=== PATIENT | female | born 1995 | race Caucasian/White ===

== ENCOUNTER 2019-03-12 21:06 | Emergency (ER) | payer OTHER ==
[2019-03-12 21:16] VITALS: BP 129/86
[2019-03-12] MEDS ORDERED: Albuterol HFA INHALER* 8 gm MDI INH ONE (21:25)
[2019-03-12] MEDS ORDERED: predniSONE TAB* 20 MG PO ONE (21:25)
--- NOTE | 2019-03-12 21:31 | UC ---
Respiratory Complaint HPI - HPI Summary HPI Summary: Started last night with sore throat. Today with wheezing with coughing. More nasal congestion and sore throat. - History of Current Complaint Chief Complaint: UCRespiratory Stated Complaint: SORE THROAT, RUNNY NOSE Hx Obtained From: Patient Hx Last Menstrual Period: irreg since demo shot ?: No Onset/Duration: Sudden Onset, Lasting Days - 1 Timing: Constant Severity Initially: Mild Severity Currently: Moderate Pain Intensity: 5 Character: Cough: Nonproductive Aggravating Factors: Deep Breaths, Recumbent Position Alleviating Factors: Nothing Associated Signs And Symptoms: Positive: Dyspnea, Wheezing, URI, Nasal Congestion Related History: Seasonal Allergies - Allergies/Home Medications Allergies/Adverse Reactions: Allergies Allergy/AdvReac Type Severity Reaction Status Date / Time amoxicillin Allergy Hives Verified 03/12/19 21:17 Home Medications: Home Medications Acetaminophen [Tylenol Extra Strength] 500 mg PO DAILY 03/12/19 [History Confirmed 03/12/19] guaiFENesin ER TAB [Mucinex*] 600 mg PO BID 03/12/19 [History Confirmed 03/12/19 ] medroxyPROGESTERone ACETATE* [DEPO-Provera*] 150 mg IM MONTHLY 03/12/19 [ History Confirmed 03/12/19] PMH/Surg Hx/FS Hx/Imm Hx Previously Healthy: Yes - Surgical History Surgical History: None - Family History Known Family History: Positive: Hypertension, Other - no FMH blood disorders - Social History Occupation: Employed Full-time Lives: With Family Alcohol Use: Weekly Alcohol Amount: 2-3 times a week Substance Use Type: None Smoking Status (MU): Heavy Every Day Tobacco Smoker Amount Used/How Often: 1/2 ppd Have You Smoked in the Last Year: Yes Review of Systems All Other Systems Reviewed And Are Negative: Yes ENT: Positive: Sore Throat, Nasal Discharge Respiratory: Positive: Shortness Of Breath, Cough Physical Exam Triage Information Reviewed: Yes Appearance: No Pain Distress, Well-Nourished, Ill-Appearing Vital Signs: Initial Vital Signs Temp 98.7 F 03/12/19 21:13 Pulse 95 03/12/19 21:13 Resp 15 03/12/19 21:13 BP 129/86 03/12/19 21:13 Pulse Ox 100 03/12/19 21:13 Vital Signs Reviewed: Yes Eyes: Positive: Conjunctiva Clear ENT: Positive: Pharynx normal, TMs normal Neck exam: Normal Respiratory: Positive: Wheezing - expiratory wheeze with coughing. Cardiovascular Exam: Normal Musculoskeletal Exam: Normal Neurological Exam: Normal Psychological Exam: Normal Skin Exam: Normal Respiratory Course/Dx - Differential Dx/Diagnosis Differential Diagnosis/HQI/PQRI: Asthma, Lower Resp Infection, Sinusitis Provider Diagnosis: Upper respiratory infection with cough and congestion, Acute bronchospasm Discharge ED - Sign-Out/Discharge Documenting (check all that apply): Patient Departure All imaging exams completed and their final reports reviewed: No Studies - Discharge Plan Condition: Stable Disposition: HOME Prescriptions: predniSONE TAB* [Deltasone 20 MG TAB*] 60 mg PO DAILY #18 tab Patient Education Materials: Upper Respiratory Infection (DC), Wheezing (ED) Referrals: No Primary Care Phys,NOPCP [Primary Care Provider] - Additional Instructions: NASAL SPRAYS AND DROPS: Afrin in the PUMP/ MIST bottle (Get generic 12 hours nasal decongestant spray). Tilt your head down and look at the floor while doing the spray. Decongestant nasal sprays and drops often give dramatic relief from congestion. They are often recommended for patients with sinus infection to assist with sinus drainage. Persons with high blood pressure should consult the doctor before using these nasal sprays. Afrin and Joaquin-Synephrine are common [id number] preparations. They should not be used for more than five days, as "rebound" congestion can occur - - the congestion flares as the drug wears off. A way of dealing with this rebound congestion problem is to medicate only one nostril each time, allowing the other nostril to recover from the medicine' s effects. When you no longer need the drug during the day, spray only one nostril each night. This helps you sleep well without severe rebound congestion. Call the doctor if you develop severe headache, palpitations, or chest pain. Use cold-eeze zinc lozenges. Get the name brand only. - Billing Disposition and Condition Condition: STABLE Disposition: Home
== END 2019-03-12 21:42 | disposition home or self-care (01) ==
LOC: UCCORT 21:06
DX: J06.9 Acute upper respiratory infection, unspecified (principal); J98.01 Acute bronchospasm; R09.81 Nasal congestion; R05 Cough; F17.210 Nicotine dependence, cigarettes, uncomplicated; Z88.0 Allergy status to penicillin
CPT/HCPCS: 99212; A9270-GY; G0463; J7512